=== PATIENT | male | born 1990 | race Caucasian/White ===

== ENCOUNTER 2016-08-13 20:57 | Emergency (ER) | payer OTHER ==
[2016-08-13] MEDS ORDERED: CYCLOBENZAPRINE 10 MG TAB As Ordered ONE (22:55)
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
--- NOTE | 2016-08-13 23:03 | EDDOCDS ---
Physician Documentation [facility] Name: Champ Gary Age: 26 yrs Sex: Male : 1990 Arrival Date: 08/13/2016 Time: 20:57 Bed Triage 3 [facility] Disposition: 08/13/16 22:49 Discharged to Home/Self Care. Impression: Temporomandibular joint disorder, unspecified. - Condition is Stable. - Discharge Instructions: Temporomandibular Joint Syndrome. - Prescriptions for Cyclobenzaprine 10 mg Oral Tablet - take 1 tablet by ORAL route 3 times per day As needed; 15 tablet. - Medication Reconciliation, Local Pharmacy Hours form. - [facility]; When: Call to arrange an appointment; Reason: Recheck today's complaints, Continuance of care. - Problem is new. - Symptoms are unchanged. Historical: - Allergies: no known allergies; - Home Meds: 1. citalopram 20 mg Oral tab 1 tab once daily 2. Adderall XR 20 mg Oral cp24 1 cap once daily 3. Amitriptyline Unknown Oral nightly - PMHx: Depression; - PSHx: right knee; - Social history: Smoking status: Patient states was never smoker of tobacco. No barriers to communication noted, The patient speaks fluent Prydeinig, Speaks appropriately for age. - Family history: Not pertinent. - : The pt / caregiver states he / she is not on anticoagulants. Home medication list is obtained from the patient. - Exposure Risk Screening:: None identified. Vital Signs: 08/13 20:59 BP 146 / 71; Pulse 84; Resp 18 S; Temp 97.3(O); Pulse Ox 98% on R/A; Weight 79.38 kg / gr2 175 lbs (R); Height 5 ft. 10 in. (177.80 cm) (R); Pain 6/10; 20:59 Body Mass Index 25.11 (79.38 kg, 177.80 cm) gr2 MDM: 22:48 Cyclobenzaprine 10 mg PO once ordered. mo1 Administered Medications: 23:00 Drug: Cyclobenzaprine 10 mg [cyclobenzaprine 10 mg tablet (1 tabs)] {Note: medication ms18 dispensed for pt to take at home per M. O'Marco Antonio PA.} Route: PO; 23:01 Follow up: Response: Med's dispensed home ms18 Signatures: Ernesto Cerrato RN RN mlb1 Ernesto Saha PA PA mo1 Daija Espinosa RN RN ms18 MTDD
--- NOTE | 2016-08-16 00:03 | EDDOCDS ---
Physician Documentation [facility] Name: Champ Gary Age: 26 yrs Sex: Male : 1990 Arrival Date: 08/13/2016 Time: 20:57 Bed Triage 3 [facility]: 08/13/16 22:49 Discharged to Home/Self Care. Impression: Temporomandibular joint disorder, unspecified. - Condition is Stable. - Discharge Instructions: Temporomandibular Joint Syndrome. - Prescriptions for Cyclobenzaprine 10 mg Oral Tablet - take 1 tablet by ORAL route 3 times per day As needed; 15 tablet. - Medication Reconciliation, Local Pharmacy Hours form. - [facility]; When: Call to arrange an appointment; Reason: Recheck today's complaints, Continuance of care. - Problem is new. - Symptoms are unchanged. Historical: - Allergies: no known allergies; - Home Meds: 1. citalopram 20 mg Oral tab 1 tab once daily 2. Adderall XR 20 mg Oral cp24 1 cap once daily 3. Amitriptyline Unknown Oral nightly - PMHx: Depression; - PSHx: right knee; - Social history: Smoking status: Patient states was never smoker of tobacco. No barriers to communication noted, The patient speaks fluent Congolese, Speaks appropriately for age. - Family history: Not pertinent. - : The pt / caregiver states he / she is not on anticoagulants. Home medication list is obtained from the patient. - Exposure Risk Screening:: None identified. Vital Signs: 08/13 20:59 BP 146 / 71; Pulse 84; Resp 18 S; Temp 97.3(O); Pulse Ox 98% on R/A; Weight 79.38 kg / gr2 175 lbs (R); Height 5 ft. 10 in. (177.80 cm) (R); Pain 6/10; 20:59 Body Mass Index 25.11 (79.38 kg, 177.80 cm) gr2 MDM: 22:48 Cyclobenzaprine 10 mg PO once ordered. mo1 23:31 [facility] Agreement was scanned into [employer] and attached to record. zo 08/14 13:55 T-Sheet-- Draft Copy was scanned into [employer] and attached to record. gb Administered Medications: 08/13 23:00 Drug: Cyclobenzaprine 10 mg [cyclobenzaprine 10 mg tablet (1 tabs)] {Note: medication ms18 dispensed for pt to take at home per Andrea PEACOCK.} Route: PO; 23:01 Follow up: Response: Med's dispensed home ms18 Signatures: Pema Mcnamara, Walter Reg gb Ernesto Cerrato, RN RN mlb1 Odalis Kimball Michael, PA PA mo1 Daija Espinosa RN RN ms18 The chart was reviewed and I authenticate all verbal orders and agree with the evaluation and treatment provided.Attachments: 23:31 [facility] [place] Agreement wang 08/14 13:55 T-Sheet-- Draft Copy Chart Complete MTDD
--- NOTE | 2016-08-16 00:03 | EDDOCDS ---
Physician Documentation [facility] Name: Champ Gary Age: 26 yrs Sex: Male : 1990 Arrival Date: 08/13/2016 Time: 20:57 Bed Triage 3 [facility] Dis[facility]: 08/13/16 22:49 Discharged to Home/Self Care. Impression: Temporomandibular joint disorder, unspecified. - Condition is Stable. - Discharge Instructions: Temporomandibular Joint Syndrome. - Prescriptions for Cyclobenzaprine 10 mg Oral Tablet - take 1 tablet by ORAL route 3 times per day As needed; 15 tablet. - Medication Reconciliation, Local Pharmacy Hours form. - [facility]; When: Call to arrange an appointment; Reason: Recheck today's complaints, Continuance of care. - Problem is new. - Symptoms are unchanged. Historical: - Allergies: no known allergies; - Home Meds: 1. citalopram 20 mg Oral tab 1 tab once daily 2. Adderall XR 20 mg Oral cp24 1 cap once daily 3. Amitriptyline Unknown Oral nightly - PMHx: Depression; - PSHx: right knee; - Social history: Smoking status: Patient states was never smoker of tobacco. No barriers to communication noted, The patient speaks fluent Austrian, Speaks appropriately for age. - Family history: Not pertinent. - : The pt / caregiver states he / she is not on anticoagulants. Home medication list is obtained from the patient. - Exposure Risk Screening:: None identified. Vital Signs: 08/13 20:59 BP 146 / 71; Pulse 84; Resp 18 S; Temp 97.3(O); Pulse Ox 98% on R/A; Weight 79.38 kg / gr2 175 lbs (R); Height 5 ft. 10 in. (177.80 cm) (R); Pain 6/10; 20:59 Body Mass Index 25.11 (79.38 kg, 177.80 cm) gr2 MDM: 22:48 Cyclobenzaprine 10 mg PO once ordered. mo1 23:31 [facility] [place] was scanned into [employer] and attached to record. zo 08/14 13:55 T-Sheet-- Draft Copy was scanned into [employer] and attached to record. gb Administered Medications: 08/13 23:00 Drug: Cyclobenzaprine 10 mg [cyclobenzaprine 10 mg tablet (1 tabs)] {Note: medication ms18 dispensed for pt to take at home per Andrea PEACOCK.} Route: PO; 23:01 Follow up: Response: Med's dispensed home ms18 Signatures: Pema Mcnamara, Walter Reg gb Ernesto Cerrato, RN RN mlb1 Odalis Kimball Michael, PA PA mo1 Daija Espinosa RN RN ms18 The chart was reviewed and I authenticate all verbal orders and agree with the evaluation and treatment provided.Attachments: 23:31 [facility] [place] Agreement wang 08/14 13:55 T-Sheet-- Draft Copy Chart Complete MTDD
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
== END 2016-08-13 23:02 | disposition home or self-care (01) ==
LOC: M ED 20:57
DX: M26.602 Left temporomandibular joint disorder, unspecified (principal); F32.9 Major depressive disorder, single episode, unspecified; Z79.899 Other long term (current) drug therapy

== ENCOUNTER → 2016-12-18 | Outpatient (CLI) | payer OTHER ==
[~2016-12-18] MED LIST: ISOVUE-370 76% 100ML VIAL (Q9967) As Ordered ONE
--- NOTE | 2016-12-18 18:21 | REP ---
Chest CT with IV contrast: History: Cough and dyspnea. Plain radiographs suggest bilateral hilar soft tissue swelling possible lymphadenopathy. CT study recommended. CT contrast dose: 75 mL of intravenous Isovue [address] findings: Digital clinical research physician radiographs are unremarkable. The lung cotter are clear. No pulmonary mass lesion, nodule, or infiltrate is appreciated. No pleural effusion is seen. There is no evidence of hilar or mediastinal mass or adenopathy. No supraclavicular or axillary mass or adenopathy is seen. No adrenal lesion is seen. The visualized upper abdominal structures are unremarkable. No bony destructive lesion is appreciated. Impression: Negative contrast enhanced CT study of the chest. No active disease. Signed by Julio C Ferguson MD 12/18/2016 08:28 P
== END ==
LOC: M RAD 16:14
PROVIDERS: ATTEND Physician Assistant Medical
DX: R05 Cough (principal); R06.00 Dyspnea, unspecified
CPT/HCPCS: 71260; Q9967